=== PATIENT | male | born 1965 | race Caucasian/White ===

== ENCOUNTER 2019-05-02 18:13 | Emergency (ER) | payer MEDICAID ==
[~2019-05-02] VITALS: Ht 182.9 cm; Wt 70.0 kg
[2019-05-02 18:17] VITALS: BP 126/68
--- NOTE | 2019-05-02 18:25 | NUR ---
PT AMBULATORY TO ROOM 6. HERE FOR RX REFILL. STATES HE HASN'T TAKEN MEDS SINCE SATURDAY. PT RESTING ON [facility]. RICHARD.
== END 2019-05-02 19:16 | disposition home or self-care (01) ==
LOC: ED 19:10
DX: Z76.0 Encounter for issue of repeat prescription (principal); F17.200 Nicotine dependence, unspecified, uncomplicated
CPT/HCPCS: 99283

== ENCOUNTER 2020-11-24 18:41 | Emergency (ER) | payer MEDICAID ==
[~2020-11-24] VITALS: Ht 182.9 cm; Wt 66.7 kg
[2020-11-24 18:52] VITALS: BP 110/70
== END 2020-11-24 19:18 | disposition home or self-care (01) ==
LOC: ED 19:01
DX: F31.9 Bipolar disorder, unspecified (principal); Z76.0 Encounter for issue of repeat prescription; F17.210 Nicotine dependence, cigarettes, uncomplicated
CPT/HCPCS: 99406